=== PATIENT | male | born 1960 | race Caucasian/White ===

== ENCOUNTER 2022-09-07 03:09 | Day surgery (SDC) | payer OTHER, SELFPAY ==
[2022-09-07] VITALS (12 sets, daily range): BP systolic 141–178; BP diastolic 76–100; PULSE 88–97; RESP 16–20; TEMP 36.3–36.9; O2SAT 92–99; BMI 28.6
--- NOTE | ~2022-09-07 | CT_ITS ---
EXAMINATION: CT ABDOMEN AND PELVIS WITHOUT CONTRAST CLINICAL INFORMATION: Left flank pain, rule out ureteral stone COMPARISON: 09/19/2018 TECHNIQUE: Multidetector volumetric imaging was performed from the superior aspect of the liver through the pubic symphysis. Sagittal and coronal reformatted images were obtained on the technologist's workstation. This CT examination was performed using dose optimization techniques as appropriate, variously including the following: *Automated exposure control *Adjustment of mA and/or kV according to patient size (this includes techniques or standardized protocols for targeted exams where dose is matched to indication/reason for exam; i.e. extremities or head) *Use of iterative reconstruction technique DLP: 585 mGy-cm FINDINGS: LUNG BASES: The visualized lung bases are unremarkable. LIVER, GALLBLADDER, AND BILIARY TREE: No focal hepatic lesion or biliary ductal dilatation is identified on this noncontrast exam. The gallbladder is unremarkable with no evidence of radiopaque gallstones, gallbladder wall thickening, or obvious pericholecystic inflammatory changes. PANCREAS: Unremarkable. SPLEEN: Unremarkable. ADRENAL GLANDS: Unremarkable. KIDNEYS AND URETERS: There is a 5 mm calculus at the left ureteropelvic junction with mild hydronephrosis and surrounding stranding. No right hydronephrosis. Few additional tiny bilateral renal calculi are noted. BLADDER: Partially distended with slight mural prominence. GASTROINTESTINAL TRACT: Colonic diverticulosis is noted. The small and large bowel are otherwise unremarkable without evidence of obstruction or pericolonic inflammatory change. The appendix is unremarkable. No free fluid or free air is seen. ABDOMINAL WALL: Fat-containing inguinal hernias. LYMPH NODES: Normal. VASCULAR: Moderate atherosclerotic calcifications. PELVIC VISCERA: Unremarkable. OSSEOUS STRUCTURES: Degenerative changes most prominently in the lower thoracic spine. CT/CT abdomen pelvis wo IV con IMPRESSION: 1. Left ureteropelvic junction calculus measuring 5 mm with mild hydronephrosis. 2. Few additional tiny bilateral renal calculi.
[2022-09-07 03:59] LABS: Basophils Absolute Auto 0.1 X10*3/uL (0.0-0.2); Eosinophils Absolute Auto 0.4 X10*3/uL (0.0-0.4); Eosinophils Percent Auto 5.6 % (0-4); Hematocrit 40.7 % (42.0-52.0); Hemoglobin 13.8 g/dl (14.0-18.0); Imm Gran Abs Auto 0.08 X10*3/uL (0.00-0.03); Imm Gran Pct Auto 1.1 % (0.0-0.4); Lymphocytes Absolute Auto 1.6 X10*3/uL (1.2-4.9); Lymphocytes Percent Auto 22.9 % (20-40); MANUAL DIFF FLAG NO; Mean Corpuscular HGB Conc 33.9 g/dl (31.0-36.0); Mean Corpuscular Hemoglobin 27.1 pg (27.0-33.0); Mean Platelet Volume 8.5 fL (9.4-12.4); Monocytes Absolute Auto 0.5 X10*3/uL (0.1-1.2); Monocytes Percent Auto 6.4 % (2-11); Neutrophils Absolute Auto 4.5 x10*3/uL (2.0-8.3); Platelet Count 325 X10*3/uL (160-400); Red Blood Count 5.09 X10*6/uL (4.60-5.80); Red Cell Distribution Width 13.2 % (11.0-16.0); White Blood Count 7.2 X10*3/uL (4.8-10.8)
[2022-09-07 04:17] LABS: Alanine Aminotransferase 37 U/L (0-40); Albumin Level 4.5 g/dL (3.5-5.0); Alkaline Phosphatase 50 U/L (39-117); Anion Gap 16 (12-20); Aspartate Amino Transferase 26 U/L (5-37); Bilirubin Direct 0.2 mg/dL (0.0-0.5); Bilirubin Total 0.5 mg/dL (0.0-1.0); Blood Urea Nitrogen 14 mg/dL (9-16); Calcium 9.8 mg/dL (8.4-10.2); Carbon Dioxide 24 mmol/L (22-29); Chloride 106 mmol/L (96-108); Creatinine Clr Calc Pharmacy 108.8; Estimated Glomerular Filt Rate > 60; Glucose Random 132 mg/dL (60-115); Lipase 34 U/L (8-78); Potassium 3.9 mmol/L (3.3-5.1); Sodium 142 mmol/L (135-145); Total Protein 7.6 g/dL (6.5-8.0)
--- NOTE | 2022-09-07 05:09 | ED.MALEGU ---
HPI - Male Genitourinary General Chief complaint: Urogenital-Male Stated complaint: possible kidney stone Time Seen by Provider: 09/07/22 05:09 Source: patient and family () Mode of arrival: ambulatory Limitations: no limitations History of Present Illness HPI Narrative: 62-year-old male who presents emergency department for evaluation of sudden onset of right flank pain. Patient states that the pain started at 02:00 hours. Describes the pain is a constant, sharp, stabbing pain any points to his left flank area when asked to localize the pain. He states the pain feels similar to when he had a kidney stone in the past. He denied fever, chills, rhinorrhea, sore throat, cough, chest pain, shortness of breath. He does have associated nausea with no vomiting. He denied frequency, urgency or dysuria. He has not noted any hematuria. Related Data Home Medications Medication Instructions Recorded Confirmed atorvastatin 40 mg tablet 40 mg PO DAILY 05/18/21 bisoprolol 5 1 tab PO DAILY 05/18/21 mg-hydrochlorothiazide 6.25 mg tablet gemfibrozil 600 mg tablet 600 mg PO BEDTIME 05/18/21 Previous Rx's Medication Instructions Recorded albuterol sulfate 90 mcg/actuation 1 inh inhalation QID PRN shortness 11/23/20 aerosol inhaler (Ventolin HFA) of breath or wheezing #8.5 grams azithromycin 250 mg tablet See Rx Instructions PO .COMPLEX #6 05/18/21 tabs Allergies Allergy/AdvReac Type Severity Reaction Status Date / Time No Known Allergies Allergy Verified 05/18/21 12:12 [No Known Allergies*] Review of Systems Review of Systems: Yes all other systems are reviewed and are negative [facility] Past Medical History [facility] Narrative: Past medical history: Hypertension, hyperlipidemia, kidney stone. Social history: He denies tobacco, alcohol and drug use. Social History Social History Smoked in Last 30 Days: No Advance Directives: No Advance Directives Information Provided: No Physical Exam Vital Signs: Vital Signs: Last Vital Signs Temp 98.4 F 09/07/22 15:09 Pulse 88 09/07/22 15:09 Resp 16 09/07/22 15:09 BP 174/96 H 09/07/22 15:09 Pulse Ox 96 09/07/22 15:09 O2 Del Method Room Air 09/07/22 15:09 BMI result Body Mass Index 28.6 Const: Other: Awake, alert, male patient, he does appear to be in distress secondary to his left flank pain. HEENT: Head: Yes normal to inspection, Yes normocephalic and Yes atraumatic Ears: external ears normal General nose exam: Normal external nose present Face and sinus: Yes normal facial exam Mouth: Normal oral and palatal mucosa present Throat: Yes posterior oropharynx normal Eyes: General: appearance normal, both eyes and all related structures Pupils: Equal, round and reactive pupils present Neck: Neck: Yes normal visual inspection, Yes no lymphadenopathy, Yes trachea midline and Yes supple Chest: Chest palpation & inspection: normal inspection of the chest and normal palpation of entire chest wall Resp: Effort & Inspection: normal respiratory effort and able to speak in complete sentences Auscultation: clear to auscultation bilaterally Cardio: Rate: regular rate Rhythm: regular rhythm Heart sounds: S1 normal heart sound present, S2 normal heart sound present and no murmurs GI: Other: Patient's abdomen is soft, nondistended, patient has mild left lower quadrant tenderness with no rebound, no voluntary or involuntary guarding : Other: Patient has [id number] left CVA tenderness Skin: General skin exam: no rashes or lesions noted Neuro: Cranial nerves: Yes CN's II-XII intact bilaterally and Yes Equal, round and reactive pupils present Cognition (Neuro): normal cognition Motor exam (neuro): 5/5 motor strength present throughout Extrem: General: Yes normal to inspection Psych: Appearance: grossly normal Speech and movement: Normal speech and movement present Affect: normal affect Attitude: cooperative Thought process: Normal thought process present Thought content: Normal thought content present Course Reevaluation(s) Reevaluation #1: Patient was evaluated by Dr. Gasca. He will be going to the operating room later this afternoon for ureteroscopy. Time: 08:39 Medications Administered Generic Name Dose Route Start Last Admin Trade Name Freq PRN Reason Stop Dose Admin Morphine Sulfate 4 mg 09/07/22 14:34 09/07/22 15:06 Morphine Sulfate 4 Mg/Ml Cartridge IVPUSH 4 mg Q2H PRN Administration Pain, Moderate(Pain Scale 4-6) Protocol Discontinued Medications Generic Name Dose Route Start Last Admin Trade Name Freq PRN Reason Stop Dose Admin Sodium Chloride 1,000 mls @ 999 mls/hr 09/07/22 05:14 09/07/22 06:18 Ns IV 09/07/22 06:14 Infused .Q1H1M STA Infusion Ketorolac Tromethamine 15 mg 09/07/22 05:14 09/07/22 05:20 Ketorolac Tromethamine 15 Mg/Ml Vial IVPUSH 09/07/22 05:15 15 mg ONCE STA Administration Morphine Sulfate 4 mg 09/07/22 05:14 09/07/22 05:21 Morphine Sulfate 4 Mg/Ml Cartridge IVPUSH 09/07/22 05:15 4 mg ONCE STA Administration Protocol Morphine Sulfate 4 mg 09/07/22 08:37 09/07/22 08:47 Morphine Sulfate 4 Mg/Ml Cartridge IVPUSH 09/07/22 08:38 4 mg ONCE ONE Administration Protocol Ondansetron HCl 4 mg 09/07/22 05:23 09/07/22 05:32 Ondansetron Hcl 4 Mg/2 Ml Vial IVPUSH 09/07/22 05:24 4 mg ONCE ONE Administration Medical Decision Making Medical Decision Making MDM Narrative: 62-year-old male who presents emergency department for evaluation of sudden onset of left flank pain which began at 02:00 hours. Patient states the pain is a constant, stabbing pain which is 10/10. Patient's pain is similar to his kidney stone pain in the past. Vital signs revealed an elevated blood pressure 158/92 otherwise unremarkable. Patient's exam did reveal mild left lower quadrant tenderness and mild to moderate left CVA tenderness. The following tests were ordered by me: CBC, CMP, lipase, urinalysis. I also ordered a CT scan of the abdomen pelvis without IV contrast to evaluate the patient for possible kidney stone. His pain and nausea was treated with morphine 4 mg IV, Toradol 15 mg IV and Zofran 4mg IV. I also ordered NS x 1 L. 0700: Patient's pain improved and he is resting comfortably. Patient is waiting for Dr. Gasca to evaluate him in the ED. At the end of my shift the patient's care was turned over to my colleague Dr. Dylan Watson. Differential Diagnosis Differential Diagnoses: The differential diagnosis associated with the presentation includes Differential diagnosis includes was not limited to pyelonephritis, ureteral stone, urinary tract infection, pancreatitis Admission/Observation Consideration of admission/observation: Escalation of care including admission/observation considered Consult Healthcare Provider Management of the patient was discussed with: Marketing Production Manager (Urologist Dr. Gasca) Dr. Gasca will evaluate the patient in the ED for possible admission to remove the kidney stone secondary to its high possition in the UPJ Lab Data MDM Lab Attestation statement: I reviewed the patient's lab results. Patient's laboratory evaluation was interpreted by me as follows: Normal white blood cell 7,200. Elevated glucose 132. Normal liver function test. Normal lipase. UA/microscopic negative. Labs were reassuring with no evidence for UTI or renal insufficiency 09/07/22 03:54 09/07/22 03:54 Labs: Lab Results 09/07/22 09/07/22 09/07/22 Range/Units 03:54 03:54 08:56 WBC 7.2 (4.8-10.8) X10*3/uL RBC 5.09 (4.60-5.80) X10*6/uL Hgb 13.8 L (14.0-18.0) g/dl Hct 40.7 L (42.0-52.0) % MCV 80.0 (80.0-98.0) fL MCH 27.1 (27.0-33.0) pg MCHC 33.9 (31.0-36.0) g/dl RDW 13.2 (11.0-16.0) % Plt Count 325 (160-400) X10*3/uL MPV 8.5 L (9.4-12.4) fL Immature Gran % (Auto) 1.1 H (0.0-0.4) % Neut % (Auto) 63.0 (45-73) % Lymph % (Auto) 22.9 (20-40) % [place] % (Auto) 6.4 (2-11) % Eos % (Auto) 5.6 H (0-4) % Baso % (Auto) 1.0 (0-2) % Lymph # (Auto) 1.6 (1.2-4.9) X10*3/uL [place] # (Auto) 0.5 (0.1-1.2) X10*3/uL Eos # (Auto) 0.4 (0.0-0.4) X10*3/uL Baso # (Auto) 0.1 (0.0-0.2) X10*3/uL Abs Immat Gran (auto) 0.08 H (0.00-0.03) X10*3/uL Absolute Neuts (auto) 4.5 (2.0-8.3) x10*3/uL Absolute Nucleated RBC 0.000 (0.0-0.012) X10*3/uL Nucleated RBC % (auto) 0.0 (0.0-0.2) /100WBC Sodium 142 (135-145) mmol/L Potassium 3.9 (3.3-5.1) mmol/L Chloride 106 (96-108) mmol/L Carbon Dioxide 24 (22-29) mmol/L Anion Gap 16 (12-20) BUN 14 (9-16) mg/dL Creatinine 0.82 (0.5-1.4) mg/dL Estim Creat Clear Calc 108.8 Estimated GFR > 60 Random Glucose 132 H (60-115) mg/dL Calcium 9.8 (8.4-10.2) mg/dL Total Bilirubin 0.5 (0.0-1.0) mg/dL Direct Bilirubin 0.2 (0.0-0.5) mg/dL AST 26 (5-37) U/L ALT 37 (0-40) U/L Alkaline Phosphatase 50 (39-117) U/L Total Protein 7.6 (6.5-8.0) g/dL Albumin 4.5 (3.5-5.0) g/dL Lipase 34 (8-78) U/L Urine Color Yellow Urine Appearance Clear Urine pH 5.5 (5.0-9.0) Ur Specific [place] 1.015 (1.005-1.025) Urine Protein Negative (Neg-Trace) mg/dL Urine Glucose (UA) Negative (Negative) mg/dL Urine Ketones Negative (Negative) mg/dL Urine Blood Negative (Negative) Urine Nitrite Negative (Negative) Ur Leukocyte Esterase Negative (Negative) Urine RBC 0-2 (0-2) /HPF Urine WBC 0-5 (0-5) /HPF Ur Squamous Epith Cells 0-2 (0-2) /HPF Urine Bacteria None Seen (None Seen) Hyaline Casts 0-2 (0-2) /LPF Independent Interpretation I performed an independent interpretation of an: CT Scan Interpretation: My indepentent interpertation of the patient's CT abd/pelvis without contrast is as follows: Renal stone at the UPJ with mild hydronephrosis. Radiology Impression Discussion of test interpretation with radiology: I have reviewed the radiologist's reading. Radiologist Impression: CT abdomen pelvis wo IV con IMPRESSION: 1. Left ureteropelvic junction calculus measuring 5 mm with mild hydronephrosis. 2. Few additional tiny bilateral renal calculi. Dictated By:Merlin Schaefer MD Independent Historian Clinical information obtained from an independent historian. History obtained from or confirmed by: Spouse () Discharge Plan Discharge Clinical Impression: Calculus of proximal left ureter, Renal colic on left side Patient Disposition: Still a Patient
[2022-09-07] MEDS: Ketorolac Tromethamine 15 MG/ML VIAL IVPUSH (05:20)
[2022-09-07] MEDS: Morphine Sulfate 4 MG/ML CARTRIDGE IVPUSH ×3 (05:21→15:06)
[2022-09-07] MEDS: 0.9 % Sodium Chloride 1,000 ML 999 ML IV (05:21)
[2022-09-07] MEDS: ondansetron HCL 4 MG/2 ML VIAL IVPUSH (05:32)
[2022-09-07 09:16] LABS: Appearance Urine Clear; Color Urine Yellow; Glucose Urine UA Negative (Negative); Leukocyte Esterase Urine Negative (Negative); Nitrite Urine Negative (Negative); PH 5.5 (5.0-9.0); Specific Gravity - Urine 1.015 (1.005-1.025); Urine Blood Negative (Negative); Urine Ketones Negative (Negative); Urine Protein Negative (Neg-Trace)
[2022-09-07 09:20] LABS: Bacteria Urine None Seen (None Seen); Hyaline Casts Urine 0-2 /LPF (0-2); RBC Urine 0-2 /HPF (0-2); Squamous Epithelial Cell Urine 0-2 /HPF (0-2); WBC Urine 0-5 /HPF (0-5)
--- NOTE | 2022-09-07 11:13 | PC.NURSE ---
assumed care of this pt at 0700. pt a@o x4, pleasant, calm, and cooperative. reporting 4/10 pain and received pain meds per may. met with urologist this am and planning for transfer to OR at some point this afternoon. pt currently resting quietly on stretcher in no apparent distress. rr even/unlabored. wctm
--- NOTE | 2022-09-07 13:11 | PC.NURSE ---
this rn spoke with SSS rn for report on pt. pt will be going to surgery around 5pm this evening.
--- NOTE | 2022-09-07 16:40 | PM.UROCN ---
History of Present Illness Consult details Consult date: 09/07/22 Narrative: Left upper ureteric stone 62-year-old male Recurrent stone former Last stone number of years ago Presents with 3 days history pain left upper flank Imaging shows 5 mm left UPJ stone with mild hydronephrosis WBC 7.2, creatinine 0.8 Recommend cystoscopy retrograde stent placement Review of Systems Constitutional: Constitutional: Reports as per HPI and Reports no additional constitutional complaints Cardiovascular: Cardiovascular: Reports as per HPI and Reports no additional cardiovascular complaints Respiratory: Respiratory: Reports as per HPI and Reports no additional respiratory complaints Gastrointestinal: Gastrointestinal: Reports as per HPI and Reports no additional gastrointestinal complaints Genitourinary: Genitourinary: Reports as per HPI Musculoskeletal: Musculoskeletal: Reports no additional musculoskeletal complaints and Reports as per HPI Neurologic: Reports system reviewed and no additional complaints, except as documented and Reports as per HPI PMF Social History Social History Smoked in Last 30 Days: No Advance Directives: No Advance Directives Information Provided: No Meds Allergies Allergy/AdvReac Type Severity Reaction Status Date / Time No Known Allergies Allergy Verified 05/18/21 12:12 [No Known Allergies*] Active Medications: Current Medications Levofloxacin (Levaquin) 500 mg in 100 mls @ 100 mls/hr IV PREOP ONE Stop: 09/07/22 17:31 Morphine Sulfate (Morphine Sulfate 4 Mg/Ml Cartridge) 4 mg IVPUSH Q2H PRN; Protocol PRN Reason: Pain, Moderate(Pain Scale 4-6) Last Admin: 09/07/22 15:06 Dose: 4 mg Home Medications Medication Instructions Recorded Confirmed Last Taken Type atorvastatin 40 mg tablet 40 mg PO DAILY 05/18/21 Unknown History bisoprolol 5 1 tab PO DAILY 05/18/21 Unknown History mg-hydrochlorothiazide 6.25 mg tablet gemfibrozil 600 mg tablet 600 mg PO BEDTIME 05/18/21 Unknown History Physical Exam Vital Signs: Vital Signs: Last Vital Signs Temp 98.4 F 09/07/22 15:09 Pulse 88 09/07/22 15:09 Resp 16 09/07/22 15:09 BP 174/96 H 09/07/22 15:09 Pulse Ox 96 09/07/22 15:09 O2 Del Method Room Air 09/07/22 15:09 BMI result Body Mass Index 28.6 Const: General: cooperative, healthy appearing, comfortable and no acute distress Orientation/consciousness: patient oriented x3 HEENT: Face and sinus: Yes normal facial exam Mouth: moist mucous membranes Neck: Neck: Yes normal visual inspection, Yes full ROM and Yes trachea midline Chest: Chest palpation & inspection: normal inspection of the chest Resp: Effort & Inspection: normal respiratory effort, able to speak in complete sentences and no respiratory distress GI: Inspection: Yes normal to inspection Back/Spine/Pelvis: Cervical Spine: normal cervical lordosis Thoracic/Lumbar Spine: thoracic and lumbar spine normal to inspection Skin: General skin exam: no rashes or lesions noted Neuro: General: patient oriented x3, tone normal and moves all extremities Extrem: General: Yes normal to inspection and Yes capillary refill normal Results Labs 09/07/22 03:54 09/07/22 03:54 Labs: Abnormal lab results 09/07/22 09/07/22 Range/Units 03:54 03:54 Hgb 13.8 L (14.0-18.0) g/dl Hct 40.7 L (42.0-52.0) % MPV 8.5 L (9.4-12.4) fL Immature Gran % (Auto) 1.1 H (0.0-0.4) % Eos % (Auto) 5.6 H (0-4) % Abs Immat Gran (auto) 0.08 H (0.00-0.03) X10*3/uL Random Glucose 132 H (60-115) mg/dL Short CBC 09/07/22 Range/Units 03:54 WBC 7.2 (4.8-10.8) X10*3/uL Hgb 13.8 L (14.0-18.0) g/dl Hct 40.7 L (42.0-52.0) % Plt Count 325 (160-400) X10*3/uL BMP 09/07/22 03:54 Sodium 142 Potassium 3.9 Chloride 106 Carbon Dioxide 24 BUN 14 Creatinine 0.82 Calcium 9.8 Liver Function 09/07/22 Range/Units 03:54 Total Bilirubin 0.5 (0.0-1.0) mg/dL Direct Bilirubin 0.2 (0.0-0.5) mg/dL AST 26 (5-37) U/L ALT 37 (0-40) U/L Alkaline Phosphatase 50 (39-117) U/L Albumin 4.5 (3.5-5.0) g/dL Urine 09/07/22 Range/Units 08:56 Urine Color Yellow Urine Appearance Clear Urine pH 5.5 (5.0-9.0) Ur Specific [place] 1.015 (1.005-1.025) Urine Protein Negative (Neg-Trace) mg/dL Urine Glucose (UA) Negative (Negative) mg/dL All other labs normal. Assessment and Plan (1) Calculus of proximal left ureter: Status: Acute Plan Risks, benefits and alternatives to therapy were discussed. These include but are not limited to infection, bleeding, damage to local organs and tissues, need for further interventions. Anesthetic risks regarding cardiac arrhythmia, blood clots, and potential mortality were discussed. The patient understands the typical recovery time and the outpatient nature of the procedure. After consideration of these risks the patient gives full informed consent and they wish to move ahead with the procedure. Cystoscopy, left retrograde, left stent placement Time Spent With Patient Time: Total time managing care of this patient today ____ minutes. Procedures Date of Service Date of Service: 09/07/22
--- NOTE | 2022-09-07 18:08 | MHC.SHP ---
Pre-Procedural Eval Section A Date of Service: 09/07/22 The patient is an INPATIENT: No Changes since office visit: No Cold of Flu in the past 2 weeks, No New Medical Problems, No Changes in Medication and No Patient answered all questions The History & Physical has been completed within 30 days and I have reviewed it.: Yes Section B Chief Complaint: possible kidney stone Allergies: Allergies Allergy/AdvReac Type Severity Reaction Status Date / Time No Known Allergies Allergy Verified 05/18/21 12:12 [No Known Allergies*] Plan Diagnosis/Plan: Unchanged I have reviewed the history and physical and performed a pertinent physical examination on my patient. No changes have occurred unless specified. Time Spent With Patient Time: Total time managing care of this patient today ____ minutes.
--- NOTE | 2022-09-07 18:13 | HO.ANESPROP2 ---
HPI - Anesthesia Eval Consult details Narrative: Ureter obstruction - left PMFSH Active Problems Active Problems: All Active Problems (Updated 09/07/22 @ 15:44 by Dominic Skelton MD) Calculus of proximal left ureter (Acute) Renal colic on left side (Acute) Acute maxillary sinusitis (Acute) Past Medical History Medical History (Updated 09/07/22 @ 18:14 by Yoni Robert MD) Hyperlipidemia Hypertension Family History Family history of problems with anesthesia: No Surgical History History of Problems with Anesthesia: No Meds Allergies Allergy/AdvReac Type Severity Reaction Status Date / Time No Known Allergies Allergy Verified 05/18/21 12:12 [No Known Allergies*] Active Medications: Current Medications Morphine Sulfate (Morphine Sulfate 4 Mg/Ml Cartridge) 4 mg IVPUSH Q2H PRN; Protocol PRN Reason: Pain, Moderate(Pain Scale 4-6) Last Admin: 09/07/22 15:06 Dose: 4 mg Home Medications Medication Instructions Recorded Confirmed Last Taken Type atorvastatin 40 mg tablet 40 mg PO DAILY 05/18/21 Unknown History bisoprolol 5 1 tab PO DAILY 05/18/21 Unknown History mg-hydrochlorothiazide 6.25 mg tablet gemfibrozil 600 mg tablet 600 mg PO BEDTIME 05/18/21 Unknown History Exam Exam Date and Time: September 07, 20221812 Height,Weight and Vital Signs: Height 5 ft 11 in Weight 92.986 kg Last Vital Signs Temp 98.2 F 09/07/22 17:41 Pulse 92 09/07/22 18:03 Resp 16 09/07/22 18:03 BP 163/97 H 09/07/22 18:03 Pulse Ox 92 09/07/22 18:03 O2 Del Method Room Air 09/07/22 18:03 Pertinent Lab Results Pertinent Lab Results: Laboratory Tests 09/07/22 09/07/22 09/07/22 03:54 03:54 08:56 WBC 7.2 RBC 5.09 Hgb 13.8 L Hct 40.7 L MCV 80.0 MCH 27.1 MCHC 33.9 RDW 13.2 Plt Count 325 MPV 8.5 L Immature Gran % (Auto) 1.1 H Neut % (Auto) 63.0 Lymph % (Auto) 22.9 [place] % (Auto) 6.4 Eos % (Auto) 5.6 H Baso % (Auto) 1.0 Lymph # (Auto) 1.6 [place] # (Auto) 0.5 Eos # (Auto) 0.4 Baso # (Auto) 0.1 Abs Immat Gran (auto) 0.08 H Absolute Neuts (auto) 4.5 Absolute Nucleated RBC 0.000 Nucleated RBC % (auto) 0.0 Sodium 142 Potassium 3.9 Chloride 106 Carbon Dioxide 24 Anion Gap 16 BUN 14 Creatinine 0.82 Estim Creat Clear Calc 108.8 Estimated GFR > 60 Random Glucose 132 H Calcium 9.8 Total Bilirubin 0.5 Direct Bilirubin 0.2 AST 26 ALT 37 Alkaline Phosphatase 50 Total Protein 7.6 Albumin 4.5 Lipase 34 Urine Color Yellow Urine Appearance Clear Urine pH 5.5 Ur Specific [place] 1.015 Urine Protein Negative Urine Glucose (UA) Negative Urine Ketones Negative Urine Blood Negative Urine Nitrite Negative Ur Leukocyte Esterase Negative Urine RBC 0-2 Urine WBC 0-5 Ur Squamous Epith Cells 0-2 Urine Bacteria None Seen Hyaline Casts 0-2 Airway Mallampati Class: II TM Dist: >3cm Neck ROM: Full Loose/Missing/Broken Teeth: No Heart: RRR Lungs: CTA Assessment and Plan Assessment Anesthesia Assessment: Anesthesia Plan Discussed and Chart Reviewed Final Anesthetic Review Family History of Problems with Anesthesia: No History of Problems with Anesthesia: No NPO: Yes ASA Class: II Final Preanesthetic Review: No Changes in Pt Med Stat, Meds/Allgs Chart Reviewed, Consent Obtained/Reviewed and Anes Risks/Benef Reviewed Patient Risk: Intermediate Procedure Risk: Low Anesthetic Plan Anesthetic Plan: MAC: Disposition: Standard PACU
[2022-09-07] MEDS: Acetaminophen 1,000 MG/100 ML PIGGYBACK 400 MG IV (18:20)
[2022-09-07] MEDS: Ketorolac Tromethamine 30 MG/ML VIAL IVPUSH (18:21)
--- NOTE | 2022-09-07 18:40 | W.PM.OPN ---
Operative Note Operative Note Date of Service: 09/07/22 Narrative: PreOperative Diagnosis: proximal left ureteric stone Post Operative Diagnosis: proximal left ureteric stone Procedure: cystoscopy, left retrograde, left stent placement Surgeon: Dr Yoni Gasca Anesthesia: sedation Indications for procedure: proximal left ureteric stone with persistent pain Procedure: After informed consent was verified the patient was brought to the operating room and placed in a supine position. Anesthesia was administered per protocol. The patient was placed in modified dorsal lithotomy position and prepped and draped in a sterile fashion. A safety pause time-out was performed. Laterality of procedure and antibiotics were confirmed, appropriate imaging was available A 22 Frisian cystoscope was introduced per urethra. No abnormality was noted of urethra or bladder. Both ureteric orifices were seen in a normal position. The left ureter was cannulated with an open ended catheter and a retrograde examination was performed. J hooking with left proximal ureteric filling defect . A Sensor guidewire was placed under fluoroscopy and a good coil was seen within the renal pelvis. A 6 Frisian variable double J stent was advanced over the wire and up to the level of the renal pelvis under fluoroscopic and direct visualization. The stent was seen with appropriate coil within the renal pelvis and in the bladder after deployment. The patient tolerated the procedure well and was transferred in a stable condition to the recovery area. Pathology: none Drains: stent
[2022-09-07] MEDS: Phenazopyridine HCL 100 MG TABLET PO (19:03)
== END 2022-09-07 19:24 | disposition home or self-care (01) ==
LOC: HO.ED 05:55 → HO.SSS 08:49
PROVIDERS: Emergency Provider Emergency Medicine Emergency Medical Services; Visit Provider Urology
PROC: (CPT 52332; principal; 2022-09-07 17:25)
DX: N13.2 Hydronephrosis with renal and ureteral calculous obstruction (principal); I10 Essential (primary) hypertension; Z87.442 Personal history of urinary calculi
CPT/HCPCS: 52332; 36415; 74176; 80048; 80076; 81001; 83690; 85025; 99285; C1758; C1769; C2617; J0131; J1885; J1956; J2270; J2405; J3010

== ENCOUNTER 2022-09-26 11:43 | Outpatient (AMB) | payer OTHER, SELFPAY ==
--- NOTE | 2022-09-26 11:44 | A.OFFVIS_ITS ---
Intake Intake Visit Reasons: H&P ESWL 09/27 Intake Note: Patient is present for Telephone H&P Update ESWL Urology Med: Tamsulosin Antibiotic Allergy: None Blood Thinner: None Allergies No Known Allergies [No Known Allergies*] Allergy (Verified 09/26/22 11:45) HPI HPI Comments History of Present Illness Details Luis Angel is a pleasant male. He is a patient of Dr. Navas. He is seen for the following urologic conditions - nephrolithiasis Telemedicine Evaluation 15 min Consultation Doximity Tavares Video attempted Nephrolithiasis Recurrent stone former Presentation through emergency room with 3 days history upper left flank pain Imaging - 09/01 5 mm left UPJ stone with mild hydronephrosis Cystoscopy stent placement Plan ESWL with stent removal [facility] Medical History Hyperlipidemia Hypertension Review of Systems Const All systems reviewed & are unremarkable except as noted in HPI and below Reports no additional complaints Resp Reports no additional complaints GI Reports no additional complaints Reports as per HPI Musc Reports no additional complaints Physical Exam Telemedicine evaluation Appropriate responses Regular breathing rate and rhythm HEENT Head: Yes normal to inspection Ears: hearing grossly normal bilaterally Eyes General: appearance normal, both eyes and all related structures Neck Neck: Yes normal visual inspection Chest Chest palpation & inspection: normal inspection of the chest Resp Effort & Inspection: normal respiratory effort and able to speak in complete sentences Assessment & Plan Assessment & Plan (1) Calculus of proximal left ureter: Code(s): N20.1 - Calculus of ureter Plan Extracorporeal Shock Wave Lithotripsy We discussed the nature of the decision and reasonable alternatives for performing the above surgery. Interventions include chemical dissolution, ESWL, ureteroscopy with laser lithotripsy and stent placement, PCNL. Options such as medical therapy were discussed. The relative uncertainties and benefits related to each alternate procedure were adequately discussed. General surgical risks including, but not limited to, pain, bleeding, infection, myocardial infarction, pulmonary embolus, deep vein thrombosis and cerebrovascular accident which may result in further hospitalization were discussed. Full disclosure of the procedure as well as all major risks, benefits and complications were discussed including but not limited to risks of bleeding, injury to the kidney with hematoma or jorge-hematoma, failure to fragments stone, potential for ureteric obstruction from stone passage and need for secondary procedures. There is a small long-term risk of hypertension and a question swathi of diabetes. Success rate of fragmentation and passage is approximately 70- 75%. This is compared to the risks and benefits for ureteroscopy which has a higher success rate but is a more invasive procedure. The success rate of the procedure was discussed. Success of the procedure in the short-term does not necessarily guarantee that long-term success will be maintained. Suitable follow up will need to be maintained. The patient showed understanding of the discussion as well as the typical recovery time, and the outpatient nature of this procedure. Opportunity was given for questions. Repeat-back protocol used to confirm understanding. They wish to proceed with left ESWL with cysto stent removal Patient Instructions: Imaging studies, laboratory and physical exam results were discussed and reviewed in detail. No major barriers to patient understanding were identified. An opportunity to ask questions regarding the treatment plan was provided. All questions were answered. The patient expressed understanding and agreement with the above treatment plan. The patient is aware they should contact our office by phone for worsening of their current condition or the appearance of new urologic symptoms. Compliance is encouraged with any medications and followup testing that is ordered. It is a privilege to participate in the urologic care of your patient. If you have any questions or concerns regarding treatment for the above conditions, or other urologic issues, please do not hesitate to contact me. The office telephone contact is [phone]. This note is constructed using voice recognition software. While every effort has been made to ensure accuracy final finisher forging dies errors may have been included. Yours sincerely, Dr Yoni Gasca MD, [facility] - Urology Providers of Expert, Compassionate Care for the Genitourinary System Telehealth Telehealth Location of provider rendering services: practice address Location of patient: address on file Patient Identification confirmed using: Name, : Yes Telehealth method: video Patient verbally consented to treatment: Yes Patient verbally consented to billing insurance company: Yes Patient informed of any privacy concerns related to visit: Yes Coding Level of Care Code Est Pt Level 4 (45852) Diagnoses Calculus of proximal left ureter N20.1
== END 2022-09-26 12:20 | disposition home or self-care (01) ==
LOC: HO.HUSH 11:43
PROVIDERS: PCP Internal Medicine; Visit Provider Urology
DX: N20.1 Calculus of ureter (principal)
CPT/HCPCS: 99442

== ENCOUNTER → 2022-09-26 11:43 | Outpatient (BNVA) | payer OTHER, SELFPAY | PROVIDERS: PCP Internal Medicine; Visit Provider Urology ==

== ENCOUNTER 2022-09-27 09:06 | Day surgery (SDC) | payer OTHER, SELFPAY ==
--- NOTE | 2022-09-26 10:36 | HO.ANESPROP2 ---
HPI - Anesthesia Eval Consult details Narrative: 62yo M for Left ESWL s/p cysto stent 08/2022 with MAC PMFSH Active Problems Active Problems: All Active Problems (Updated 09/15/22 @ 00:06 by Background Dajessica) Calculus of proximal left ureter (Acute) Acute maxillary sinusitis (Acute) Past Medical History Medical History (Updated 09/15/22 @ 00:06 by Background Dajessica) Hyperlipidemia Hypertension Family History Family history of problems with anesthesia: No Surgical History History of Problems with Anesthesia: No Meds Allergies Allergy/AdvReac Type Severity Reaction Status Date / Time No Known Allergies Allergy Verified 05/18/21 12:12 [No Known Allergies*] Home Medications Medication Instructions Recorded Confirmed Last Taken Type atorvastatin 40 mg tablet 40 mg PO DAILY 05/18/21 Unknown History bisoprolol 5 1 tab PO DAILY 05/18/21 Unknown History mg-hydrochlorothiazide 6.25 mg tablet gemfibrozil 600 mg tablet 600 mg PO BEDTIME 05/18/21 Unknown History Exam Exam Date and Time: September 26, 2022 1036 Pertinent Lab Results Pertinent Lab Results: Laboratory Tests 09/07/22 09/07/22 03:54 03:54 WBC 7.2 Hgb 13.8 L Hct 40.7 L Plt Count 325 Sodium 142 Potassium 3.9 Chloride 106 Carbon Dioxide 24 BUN 14 Creatinine 0.82 Assessment and Plan Assessment Anesthesia Assessment: Chart Reviewed Final Anesthetic Review Family History of Problems with Anesthesia: No History of Problems with Anesthesia: No
--- NOTE | ~2022-09-27 | XR_ITS ---
EXAMINATION: XR ABDOMEN KUB CLINICAL INDICATION: Left kidney stone COMPARISON: CT abdomen pelvis 09/07/2022 TECHNIQUE: AP view of the abdomen. FINDINGS: An internally dwelling double-J ureteral stent is now present on the left. There is a tiny few millimeter sized calcification present projecting over the lower pole of the left kidney. Similar calculi were present on the prior CT scan. The calculus seen at the left ureteropelvic junction is no longer seen. However, there is a 3 mm calculus present along the the lateral border of the distal ureteral stent which I suspect is the stone which had been at ureteropelvic junction at the time of the prior CT scan as no calcification or phlebolith was seen in this region at the time of the prior CT. The bowel gas pattern is normal with no evidence of ileus or obstruction. No other unusual soft tissue calcifications are noted. The bones are unremarkable. XR/XR KUB IMPRESSION: Interval placement of left double-J ureteral stent. Tiny residual calculi are present in the lower pole of the left kidney. A 3 mm calculus is present along the distal aspect of the stent is probably the stone that was previously seen at the UPJ causing obstruction.
[2022-09-27 09:22] VITALS: BMI 28.6
[2022-09-27 10:36] VITALS: BP 146/85; PULSE 65; RESP 18; TEMP 36.6; O2SAT 96
[2022-09-27] MEDS: Lactated Ringers 1,000 ML 999 ML IV (10:50)
--- NOTE | 2022-09-27 11:30 | P.CONAN_ITS ---
[facility] Active Problems Active Problems: All Active Problems (Updated 09/15/22 @ 00:06 by Lucero Brian) Calculus of proximal left ureter (Acute) Acute maxillary sinusitis (Acute) Past Medical History Medical History Hyperlipidemia Hypertension Family History Family history of problems with anesthesia: No Surgical History History of Problems with Anesthesia: No Social History Social History Patient Tobacco Use Status: Former Tobacco user Are you DNR?: No Advance Directives: No Advance Directives Information Provided: Yes Meds Allergies Allergy/AdvReac Type Severity Reaction Status Date / Time No Known Allergies Allergy Verified 09/26/22 11:45 [No Known Allergies*] Active Medications: Current Medications Lactated Ringer's (Lr) 1,000 mls @ 100 mls/hr IVCONT .Q10H [facility] Home Medications Medication Instructions Recorded Confirmed Last Taken Type atorvastatin 40 mg tablet 40 mg PO DAILY 05/18/21 Unknown History bisoprolol 5 1 tab PO DAILY 05/18/21 09/27/22 History mg-hydrochlorothiazide 6.25 mg tablet gemfibrozil 600 mg tablet 600 mg PO BEDTIME 05/18/21 Unknown History Exam Exam Date and Time: September 27, 2022 1130 Height,Weight and Vital Signs: Height 5 ft 11 in Weight 92.986 kg Last Vital Signs Temp 98 F 09/27/22 10:36 Pulse 65 09/27/22 10:36 Resp 18 09/27/22 10:36 BP 146/85 H 09/27/22 10:36 Pulse Ox 96 09/27/22 10:36 O2 Del Method Room Air 09/27/22 10:36 Airway Mallampati Class: III TM Dist: >3cm Neck ROM: Full Heart: RRR Lungs: CTA Assessment and Plan Assessment Anesthesia Assessment: Anesthesia Plan Discussed Final Anesthetic Review Family History of Problems with Anesthesia: No History of Problems with Anesthesia: No ASA Class: II Final Preanesthetic Review: Meds/Allgs Chart Reviewed and Consent Obtained/Reviewed Patient Risk: Low Procedure Risk: Low Anesthetic Plan Anesthetic Plan: GA Disposition: Standard PACU
--- NOTE | 2022-09-27 12:13 | PC.NURSE ---
1000ml fluid given
--- NOTE | 2022-09-27 12:59 | W.PM.OPN ---
Operative Note Operative Note Date of Service: 09/27/22 Narrative: PreOperative Diagnosis: Left Renal stones with indwelling left ureteric stent Post Operative Diagnosis: Left Renal stones Procedure: Left ESWL - cystoscopy with left stent Surgeon: Dr Yoni Gasca Anesthesia: mac/sedation Indications for procedure: The patient understands ESWL may be a staged procedure and subsequent intervention may be required based on imaging after ESWL. Quoted stone clearance rates for a solitary procedure are in the 70-80% range based primarily on stone location. They also understand there is a risk of bleeding to the kidney, infection, damage to adjacent organs, and stone migration following the procedure. - Imaging 5 mm proximal ureter Procedure: After informed consent was verified the patient was brought to the operating room and placed in a supine position. Anesthesia was performed per protocol. Safety pause time-out was performed. Imaging was displayed in the room and laterality confirmed. ESWL was performed. The 1st 500 shocks were performed at 60 hertz. These were performed with increasing power. Once maximum power was reached the rate was increased to 180 hertz. A total of 2500 shocks were given. Targeted imaging with ultrasound/fluoroscopy showed stone smudging suggestive of disintegration. Following ESWL. Cystoscopy performed. Stent seen emerging from left ureteric orifice. Stent grasped and removed. The patient tolerated the procedure well and was transferred to the recovery area upon completion. Post procedure imaging will be organized. There was no evidence for flank discoloration.
[2022-09-27 13:15] VITALS: BP 133/67; PULSE 77; RESP 16; TEMP 36.3; O2SAT 96
[2022-09-27 13:20] VITALS: BP 138/77; PULSE 68; RESP 16; O2SAT 97
[2022-09-27 13:25] VITALS: BP 128/81; PULSE 71; RESP 17; O2SAT 97
[2022-09-27 13:30] VITALS: BP 147/93; PULSE 72; RESP 16; O2SAT 97
[2022-09-27 13:43] VITALS: BP 164/97; PULSE 66; RESP 17; TEMP 36.4; O2SAT 97
--- NOTE | 2022-09-27 13:59 | HO.POSTANES ---
Post Anesthesia Evaluation Post Anesthesia Evaluation Date of Service: 09/27/22 Vital Signs: Vital Signs Temp Pulse Resp BP Pulse Ox O2 Del Method 09/27/22 13:43 97.5 F 66 17 164/97 H 97 Room Air 09/27/22 13:30 72 16 147/93 H 97 Room Air 09/27/22 13:25 71 17 128/81 97 Room Air 09/27/22 13:20 68 16 138/77 97 Room Air 09/27/22 13:15 97.3 F 77 16 133/67 96 Room Air 09/27/22 10:36 98 F 65 18 146/85 H 96 Room Air Anesthesia: General LMA Mental Status: Awake Pain Control: Satisfactory Nausea/Vomiting: None Hydration: Adequate Anesthesia-Related Issues: No Anes. Related Issues
== END 2022-09-27 14:18 | disposition home or self-care (01) ==
PROVIDERS: PCP Internal Medicine; Visit Provider Urology
PROC: (CPT 50590; principal; 2022-09-27 10:50)
DX: N20.0 Calculus of kidney (principal); I10 Essential (primary) hypertension; Z96.0 Presence of urogenital implants
CPT/HCPCS: 50590; 52310; 74018; J0131; J1100; J2250; J2405; J3010

== ENCOUNTER → 2022-09-27 09:06 | Outpatient (BNV) | payer OTHER, SELFPAY | PROVIDERS: PCP Internal Medicine; Visit Provider Urology | DX: N20.0 Calculus of kidney (principal); Z96.0 Presence of urogenital implants | CPT/HCPCS: 50590; 52310 ==